=== PATIENT | male | born 1995 | race Two or more races ===

== ENCOUNTER 2025-03-18 11:02 | Emergency (ER) | payer OTHER ==
[~2025-03-18] VITALS: Ht 177.8 cm; Wt 77.1 kg
[2025-03-18] MEDS ORDERED: CEFTRIAXONE SODIUM 1,000 MG VIAL IM ONE (16:00)
[2025-03-18] MEDS ORDERED: TETANUS & DIPHTHERIA TOX,ADULT 0.5 ML VIAL IM ONE (16:00)
[2025-03-18] MEDS ORDERED: LIDOCAINE HCL 1% 10ML VIAL ONE (16:34)
[2025-03-18] MEDS ORDERED: DIPHTH,PERTUSS(ACELL),TET VAC 0.5 ML SYRINGE IM ONE (16:35)
[2025-03-18] MEDS ORDERED: LIDOCAINE HCL 1% 10ML VIAL PERCUT ONE (17:15)
[2025-03-18] MEDS ORDERED: DUI500 PO (17:16)
== END 2025-03-18 21:39 | disposition home or self-care (01) ==
LOC: ER 14:04
DX: S01.511A Laceration without foreign body of lip, initial encounter (principal); W26.8XXA Contact with other sharp object(s), not elsewhere classified, initial encounter; Y93.89 Activity, other specified; Y92.89 Other specified places as the place of occurrence of the external cause; Y99.8 Other external cause status
CPT/HCPCS: 12011; 90471; 90714; J1670